=== PATIENT | male | born 1930 ===

== ENCOUNTER 2016-06-17 15:58 | Inpatient (IN) | payer OTHER ==
[2016-06-17 16:54] VITALS: BMI 23.9
[2016-06-17] MEDS: Insulin Reg-LOW-Coverage SC SCH ×2 (17:30→21:30)
[2016-06-17] MEDS: Arformoterol 15 mcg/2 ml Inh Sol IH SCH (21:31)
[2016-06-17] MEDS: Budesonide 0.5 mg/2 ml Inhal Susp UD INH SCH (21:31)
[2016-06-17] MEDS: Levalbuterol 0.63 MG/3 ML Inhal Soln UD IH SCH (21:32)
[2016-06-18] MEDS ORDERED: Pantoprazole 20 mg EC Tab PO SCH (06:00)
[2016-06-18] MEDS: Arformoterol 15 mcg/2 ml Inh Sol IH SCH ×2 (08:01→19:02)
[2016-06-18] MEDS: Levalbuterol 0.63 MG/3 ML Inhal Soln UD IH SCH ×3 (08:01→19:02)
[2016-06-18] MEDS: Budesonide 0.5 mg/2 ml Inhal Susp UD INH SCH ×2 (08:01→19:02)
[2016-06-18] MEDS: Insulin Reg-LOW-Coverage SC SCH ×4 (08:03→21:36)
--- NOTE | 2016-06-18 15:46 | PN ---
DATE: 06/18/2016 This 86-year-old male was examined at his bedside in the presence of his nurse. He was ambulating in the hallway without difficulty with physical therapy and denied any chest pain or shortness of breat h. He is receiving physical therapy for reconditioning and gait training. PHYSICAL EXAMINATION: VITAL SIGNS: Temperature 97.6, respirations 18, pulse 64, and blood pressure 123/49 with a pulse ox of 95%. HEAD: Normocephalic, atraumatic. EYES: Showed no icterus. EARS: Clear. THROAT: Not injected. NECK: Supple. HEART: Regular S1, S2. LUNGS: Had no rales. ABDOMEN: Soft. EXTREMITIES: No edema. SKIN: Without rash. NEUROLOGIC: Intact. PSYCHOLOGICAL: Alert. VASCULAR: Legs warm to touch. LABORATORY DATA: Most recent laboratories showed white count 13,000 in the setting of recently disco ntinued IV steroids, hemoglobin 9.8, hematocrit 28.8, and platelets 327,000. Sodium 133, K 4.0, chlo ride 94, bicarb 31, BUN 16, creatinine 0.9, random blood sugar was 157. The patient was seen by Dr. Jonah Mckee for anemia of possible chronic disease versus iron deficiency anemia. At present, he is to receive 1 month of ferrous gluconate 324 mg 1 tablet daily and to have a repeat CBC, percent saturation and ferritin level by his PMD at that time. The patient was also ad vised by both myself and Dr. Mckee that he will need an outpatient endoscopy and colonoscopy when leydi ared by his field broomer, Dr. Sheryl Gonzalez. This was discussed with the family in detail as well. At pr esent, the patient will need physical and occupational therapy for reconditioning and gait training. He will continue on a heart healthy, moderate carb, fluid restricted diet. He will continue on Brov lexy inhalational therapy q. 12, Diovan 320 mg p.o. daily, DuoNeb nebulizers q. 6 hours, nasal O2 p.r. n., Pulmicort inhalational therapy q. 12 hours, regular low dose insulin coverage a.c. meals and at bedtime, ferrous gluconate 324 mg p.o. daily, Lipitor 20 mg p.o. at dinnertime, metoprolol tartrate 2 5 mg p.o. b.i.d., Norvasc 10 mg p.o. daily, Protonix 20 mg p.o. daily and Tylenol p.r.n. pain. Ultim ate plan is for discharge to home where his family will provide 24-hour supervision of this patient a nd he will resume his outpatient medical care with Dr. Sheryl Gonzalez upon discharge. All of this was d iscussed with his family and he is aware that he needs to follow up with Dr. Jonah Mckee from [facility] regarding his chronic anemia and that he should have an endoscopy and colonoscopy when cleared by his field broomer, Dr. Sheryl Gonzalez. Catina Patel MD cc: [id number] TT: 06/18/2016 15:45:37 Confirmation # [id number] Dictation # [id number] tn
[2016-06-19] MEDS: Pantoprazole 20 mg EC Tab PO SCH (05:29)
[2016-06-19] MEDS: Insulin Reg-LOW-Coverage SC SCH ×4 (06:33→22:33)
[2016-06-19 07:18] LABS: MEAN CELL VOLUME 80.8 fL (80.0-105.0); MEAN CORPUSCULAR HEMOGLOBIN 27.6 pg (25.0-35.0); MEAN CORPUSCULAR HGB CONC 34.1 g/dl (31.0-37.0); RED CELL DISTRIBUTION WIDTH 15.7 % (11.5-14.5); WHITE BLOOD COUNT 12.4 10^3/ul (4.5-11.0)
[2016-06-19 07:31] LABS: BLOOD UREA NITROGEN 14 mg/dL (7-21); CALCIUM 9.4 mg/dL (8.4-10.5); CARBON DIOXIDE 30 mmol/L (21-33); CHLORIDE 88 mmol/L (95-110); GFR AFRICAN-AMERICAN > 60; GLUCOSE,RANDOM 126 mg/dL (70-110); POTASSIUM 4.3 mmol/L (3.6-5.0); SODIUM 129 mmol/L (132-148)
[2016-06-19] MEDS: Arformoterol 15 mcg/2 ml Inh Sol IH SCH ×2 (09:16→20:49)
[2016-06-19] MEDS: Budesonide 0.5 mg/2 ml Inhal Susp UD INH SCH ×2 (09:17→20:49)
[2016-06-19] MEDS: Levalbuterol 0.63 MG/3 ML Inhal Soln UD IH SCH ×3 (09:17→20:50)
[2016-06-19] MEDS: Tiotropium 18 mcg Cap For Inhalation IH SCH (09:45)
--- NOTE | 2016-06-19 11:43 | PN ---
DATE: 06/19/2016 This 86-year-old male was examined at his bedside. His case was reviewed with his physical therapist, his nurse and the unit educator. The patient was ambulating in the hallway without difficulty with therapy. He is able to do staircase safety independently as well. 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 The patient and his family agree that due to his advanced age and multiple medical comorbidities it is prudent at this point in his medical course to treat him conservatively and compassionately. This can be further addressed by his PMD as an outpatient. PHYSICAL EXAMINATION: VITAL SIGNS: Temperature is 97.5, respirations 18, pulse 80, and blood pressure 118/50 with a pulse ox of 99%. HEAD: Normocephalic, atraumatic. EYES: Show no icterus. EARS: Clear. THROAT: Noninjected. NECK: Supple. HEART: S1, S2. LUNGS: With rhonchi and occasional wheezing. ABDOMEN: Soft. EXTREMITIES: No edema. SKIN: Without rash. NEUROLOGIC: Intact. PSYCHOLOGICAL: Alert. VASCULAR: Warm to touch. LABORATORY DATA: White count 12,400, hemoglobin 11.6, hematocrit 34.0, platelets 287,000. Sodium 129, K 4.3, chloride 98, bicarbonate 30, BUN 14, creatinine 0.9. Random blood sugar is 126. 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 PLAN: At present, as discussed with Dr. Louise from nephrology, is to continue p.o. fluid restriction of 800 mL daily, allow the patient to have added salt and high protein diet. He will have his Maxzide discontinued permanently and will be started on Lasix 20 mg p.o. b.i.d. with K-Dur mEq p.o. b.i.d. to help with his hyponatremia, which is stable at present. He will continue on Xopenex, Spiriva, Pulmicort and Brovana. He will also continue Diovan, ferrous gluconate 1 tablet daily with followup with Dr. Mckee in his office in 1 month, low dose regular insulin coverage, Lipitor, metoprolol tartrate, Norvasc and Protonix. Social service will ready the patient for discharge with home care needs. The patient will be following with his primary care physician, Dr. Sheryl Gonzalez as an outpatient as well as Dr. Jonah Mckee from hematology. Greater than fifty minutes was spent in the care and coordination of care for this patient today. OVERALL PROGNOSIS: Stable. Catina Patel MD cc: [id number] TT: 06/19/2016 11:42:43 Confirmation # [id number] Dictation # [id number] moon WAGNER
[2016-06-19] MEDS: Potassium Chloride 10 mEq ER Tab PO SCH ×2 (12:30→18:40)
[2016-06-19 16:54] VITALS: O2SAT 96
[2016-06-20] MEDS: Pantoprazole 20 mg EC Tab PO SCH (05:05)
[2016-06-20] MEDS: Insulin Reg-LOW-Coverage SC SCH ×2 (07:10→12:30)
[2016-06-20] MEDS: Budesonide 0.5 mg/2 ml Inhal Susp UD INH SCH (07:35)
[2016-06-20] MEDS: Levalbuterol 0.63 MG/3 ML Inhal Soln UD IH SCH ×2 (07:36→13:31)
[2016-06-20] MEDS: Arformoterol 15 mcg/2 ml Inh Sol IH SCH (07:36)
[2016-06-20] MEDS: Potassium Chloride 10 mEq ER Tab PO SCH (09:32)
[2016-06-20] MEDS: Tiotropium 18 mcg Cap For Inhalation IH SCH (09:33)
[2016-06-20 11:16] VITALS: BP 95/54; PULSE 95; RESP 16; TEMP 97.5
--- NOTE | 2016-06-20 13:28 | DS ---
FINAL DIAGNOSES: Reconditioning secondary to deconditioning, improved, chronic obstructive pulmonary disease, chronic anemia, hyperlipidemia, chronic hypertension, hyponatremia, improved. DISPOSITION: Home. FOLLOWUP: With Dr. Sheryl Gonzalez, PMD within [address] Jonah Mckee within the next month from hematology. Followup with Dr. John Fernandez , pulmonary. within 1 week. DISCHARGE DIET: Added salt, 800 mL p.o. fluid restriction daily with high protein. DISCHARGE MEDICATIONS: Brovana inhalational therapy q. 12, Diovan 320 mg p.o. daily, ferrous gluconate 324 mg p.o. daily x 1 month, no refills. Followup with Dr. Mckee at completion of 1 month of ferrous gluconate for repeat CBC and further workup of anemia as needed. Lasix 20 mg p.o. b.i.d., K tab 10 mEq p.o. b.i.d., Lipitor 20 mg p.o. at bedtime, metoprolol tartrate 12.5 mg p.o. b.i.d., Pulmicort inhalational therapy q. 12, Spiriva inhalational therapy daily and albuterol inhaler 1 puff t.i.d. p.r.n. SUMMARY: This 86-year-old male was admitted to transitional care rehab for reconditioning and gait training in the setting of multiple medical problems as listed above. Upon admission, he was noted to be hyponatremic and was felt to have this problem probably secondary to syndrome of inappropriate antidiuretic hormone in the setting of advanced pulmonary COPD with a chest x-ray and CT of the lungs that were unremarkable for any malignancy. He was seen by woods overseer, Dr. Erasmo Partida and Dr. Louise, who concurred with the discontinuation of Microzide, suggested the p.o. fluid restriction and added salt to diet and the initiation of Lasix with oral potassium. This was all explained to the patient and his , Lin, in detail with an secretary bookkeeper present. They are aware at the time of discharge that the patient's vital signs are temperature 97.5, respirations 16, pulse 95 and blood pressure 139/ 63. Pulse ox was 96% on room air. The patient is discharged to home to the care of his family. He will have all followup with his PMD, Dr. Sheryl Gonzalez and Dr. Fernandez, pulmonary, and Dr. Jonah Mckee, hematology/oncology, and hopefully will be compliant with the above recommendations. Greater than fifty minutes was spent in the discharge care for this patient today.All questions were answered, medications were reviewed and patient and were able to comprehend the above discussion and had no further questions prior to discharge. Catina Patel MD cc: [phone] TT: 06/20/2016 13:27:35 en MTDD
== END 2016-06-20 14:40 | disposition home or self-care (01) | DRG 191 ==
LOC: TRCU 15:58
PROVIDERS: ADMIT Internal Medicine; ATTEND Internal Medicine
PROC: F07Z9FZ Gait Training/Functional Ambulation Treatment using Assistive, Adaptive, Supportive or Protective Equipment (ICD-10-PCS; principal; 2016-06-17)
PROC: 3E0F7GC Introduction of Other Therapeutic Substance into Respiratory Tract, Via Natural or Artificial Opening (ICD-10-PCS; 2016-06-17)
PROC: F08Z4FZ Home Management Treatment using Assistive, Adaptive, Supportive or Protective Equipment (ICD-10-PCS; 2016-06-18)
DX: J44.9 Chronic obstructive pulmonary disease, unspecified (principal); E22.2 Syndrome of inappropriate secretion of antidiuretic hormone; D64.9 Anemia, unspecified; E11.9 Type 2 diabetes mellitus without complications; I10 Essential (primary) hypertension; K27.9 Peptic ulcer, site unspecified, unspecified as acute or chronic, without hemorrhage or perforation; E78.5 Hyperlipidemia, unspecified; K21.9 Gastro-esophageal reflux disease without esophagitis; M19.90 Unspecified osteoarthritis, unspecified site